=== PATIENT | male | born 1960 | race Caucasian/White ===

== ENCOUNTER 2019-12-31 19:57 | Inpatient (IN) | payer OTHER ==
[~2019-12-31] VITALS: Ht 180.3 cm; Wt 84.6 kg
[2019-12-31] MEDS ORDERED: VECURONIUM 10 MG ONE ×2 (20:06→20:58)
--- NOTE | 2019-12-31 20:25 | NUR ---
[facility] Blue called at 1946 after EMS alerted cardiac arrest via ambulance report
[2019-12-31] MEDS ORDERED: MIDAZOLAM HCL 50 MG in SODIUM CHLORIDE 0.9% 40 ML IV PRN (20:30)
--- NOTE | 2019-12-31 20:31 | NUR ---
Spoke with Dr. Hagen regarding patient at 2030. He asks that phlebotomist medical lab assistant be called in at this time. cardiac cath lab technologist called in by code phone at 2030. All phlebotomist medical lab assistant members in route per code phone (mogul operator) at [phone].
[2019-12-31 20:35] LABS: BASOPHILS # (AUTO) 0.06 x10^3/uL (0-0.1); BASOPHILS % (AUTO) 1 % (0-1); EOSINOPHILS # (AUTO) 0.13 x10^3/uL (0-0.4); EOSINOPHILS % (AUTO) 2 % (1-7); LYMPHOCYTES # (AUTO) 3.97 x10^3/uL (1-3.4); LYMPHOCYTES % (AUTO) 46 % (22-44); MD NO; MEAN CORPUSCULAR HEMOGLOBIN 30.7 pg (27.5-34.5); MEAN CORPUSCULAR HGB CONC 32.7 g/dL (33.2-36.2); MEAN CORPUSCULAR VOLUME 94.1 fL (81-97); MONOCYTES # (AUTO) 0.56 x10^3/uL (0.2-0.8); MONOCYTES % (AUTO) 6 % (2-9); NEUTROPHILS # (AUTO) 3.98 x10^3/uL (1.8-6.8); NEUTROPHILS % (AUTO) 46 % (42-75); PLATELET COUNT 134 x10^3/uL (130-400); RED BLOOD COUNT 4.54 x10^6/uL (4.38-5.82); RED CELL DISTRIBUTION WIDTH 13.7 % (9.4-14.8)
[2019-12-31] MEDS ORDERED: AMIODARONE 50 MG/ML, 3ML ONE ×3 (20:37→23:56)
[2019-12-31 20:52] LABS: ALBUMIN 3.3 g/dL (3.4-5.0); ANION GAP 18 mmol/L (5-15); CALCIUM 8.8 mg/dL (8.5-10.1); CHLORIDE 109 mmol/L (98-107)
[2019-12-31 20:54] LABS: ALANINE AMINOTRANSFERASE 367 U/L (12-78); ALKALINE PHOSPHATASE 71 U/L (45-117); BILIRUBIN,TOTAL 0.4 mg/dL (0.2-1.0); TOTAL PROTEIN 6.9 g/dL (6.4-8.2)
[2019-12-31 20:58] LABS: TROPONIN I 0.363 ng/mL (0.000-0.045)
[2019-12-31] MEDS ORDERED: EPINEPHRINE SYRINGE 0.1 MG/ML, 10ML ONE (20:58)
[2019-12-31] MEDS ORDERED: ASPIRIN 300 MG SUPP PR ONE (21:00)
[2019-12-31] MEDS ORDERED: AMIODARONE 50 MG/ML, 3ML IVPush ONE (21:00)
[2019-12-31] MEDS ORDERED: MIDAZOLAM 1 MG/ML, 2ML ONE (21:03)
[2019-12-31] MEDS ORDERED: FENTANYL PF 100 MCG/2ML ONE (21:03)
[2019-12-31] MEDS ORDERED: TICAGRELOR 90 MG TABLET ONE (21:03)
[2019-12-31] MEDS ORDERED: BIVALIRUDIN 250 MG ONE (21:03)
[2019-12-31] MEDS ORDERED: LIDOCAINE-MPF 1%, 5ML ONE (21:04)
[2019-12-31] MEDS ORDERED: VERAPAMIL 2.5 MG/ML, 2ML ONE (21:04)
--- NOTE | 2019-12-31 21:36 | NUR ---
ASSISTED WITH TRANSPORT TO QUANTITATIVE MANAGER.
[2019-12-31] MEDS ORDERED: SODIUM PHOSPHATE 20 MMOL in SODIUM CHLORIDE 0.9% 250 ML IVPB PRN (22:01)
[2019-12-31] MEDS ORDERED: SODIUM CHLORIDE 0.9% 1,000 ML IV SCH ×2 (22:01→22:18)
[2019-12-31] MEDS ORDERED: BIVALIRUDIN 250 MG in SODIUM CHLORIDE 0.9% 50 ML IV SCH (22:18)
[2019-12-31] MEDS ORDERED: ARTIFICIAL TEARS OINT 3.5 GM EACHEYE SCH (22:30)
[2019-12-31] MEDS ORDERED: CALCIUM CHLORIDE 13.6 MEQ in SODIUM CHLORIDE 0.9% 100 ML IVPB PRN (22:30)
[2019-12-31] MEDS ORDERED: ATORVASTATIN 80 MG TABLET PO SCH (22:30)
[2019-12-31] MEDS ORDERED: AMIODARONE 450 MG in DEXTROSE 5% 241 ML IV PRN (22:30)
[2019-12-31] MEDS ORDERED: LACTULOSE 20 GM/30 ML UDC NG PRN (22:30)
[2019-12-31] MEDS ORDERED: PHARMACY MAY ADJ FOR RENAL FX MC SCH (22:30)
[2019-12-31] MEDS ORDERED: EPINEPHRINE 5 MG in SODIUM CHLORIDE 0.9% 245 ML IV PRN (23:45)
[2019-12-31] MEDS ORDERED: EPINEPHRINE 1 MG/ML, 1ML ONE (23:56)
[2019-12-31] MEDS ORDERED: SODIUM CHLORIDE 0.9%, 250ML ONE (23:56)
[2019-12-31] MEDS ORDERED: DEXTROSE 5%, 250ML ONE (23:56)
[2019-12-31] MEDS ORDERED: CODE BLUE RESPONSE XX ONE (23:57)
[2020-01-01] MEDS ORDERED: EPINEPHRINE SYRINGE 0.1 MG/ML, 10ML ONE
[2020-01-01] MEDS ORDERED: ATROPINE SYRINGE 0.1 MG/ML, 10ML ONE
[2020-01-01] MEDS ORDERED: AMIODARONE 50 MG/ML, 3ML ONE
[2020-01-01] MEDS ORDERED: CALCIUM CHLORIDE 10%, 10ML SYR ONE
[2020-01-01] MEDS: BUSPIRONE 10 MG TABLET NG SCH ×3 (00:22→15:49)
[2020-01-01] MEDS: REGULAR INSULIN 100 UNITS in SODIUM CHLORIDE 0.9% 99 ML IV PRN ×2 (00:57→11:30)
[2020-01-01] MEDS: KSCALE TO 4.0 IV SCH ×6 (00:57→20:00)
[2020-01-01] MEDS: FAMOTIDINE 20 MG/2 ML IVPush SCH ×3 (00:58→20:59)
[2020-01-01] MEDS ORDERED: INSULIN REGULAR 100 UNITS/ML, 3ML VIAL IV ONE (01:00)
[2020-01-01] MEDS ORDERED: DEXTROSE 50%, 50ML SYRINGE IV PRN (01:00)
[2020-01-01] MEDS ORDERED: INSULIN INFUSION FOR ICU PROTOCOL XX PRN (01:00)
[2020-01-01] MEDS: FENTANYL PF 1,000 MCG in SODIUM CHLORIDE 0.9% 80 ML IV PRN ×2 (01:59→23:51)
[2020-01-01] MEDS: PROPOFOL 100 ML IV PRN ×2 (02:00→12:56)
[2020-01-01 04:00] VITALS: BP 94/65
[2020-01-01 04:40] LABS: MEAN CORPUSCULAR HEMOGLOBIN 30.8 pg (27.5-34.5); MEAN CORPUSCULAR HGB CONC 32.8 g/dL (33.2-36.2); MEAN CORPUSCULAR VOLUME 93.8 fL (81-97); MEAN PLATELET VOLUME 8.3 fL (7.4-10.4); PLATELET COUNT 324 x10^3/uL (130-400); RED BLOOD COUNT 4.91 x10^6/uL (4.38-5.82); RED CELL DISTRIBUTION WIDTH 13.6 % (9.4-14.8)
[2020-01-01 04:46] LABS: ANION GAP 13 mmol/L (5-15); CHLORIDE 115 mmol/L (98-107); CREATININE 1.99 mg/dL (0.7-1.3)
[2020-01-01] MEDS ORDERED: SODIUM BICARB 8.4%, 50ML SYRINGE IVPush STA (04:54)
[2020-01-01 04:57] LABS: MD YES
[2020-01-01] MEDS ORDERED: SODIUM BICARB 8.4%, 50ML SYRINGE ONE ×2 (04:57)
[2020-01-01 04:58] LABS: <PLATELET ESTIMATE> ADEQUATE; <PLT MORPHOLOGY> NORMAL PLT MORPH; <RBC MORPHOLOGY> NORMAL; BAND#(MANUAL) 2.61 x10^3/uL; BANDS%(MANUAL) 15 % (0-7); LYMPH#(MANUAL) 2.26 x10^3/uL (1-3.4); LYMPHS% (MANUAL) 13 % (22-44); METAMYELOCYTES# (MANUAL) 0.52 x10^3/uL (0-0); METAMYELOCYTES% (MANUAL) 3 % (0-1); MONOS#(MANUAL) 0.17 x10^3/uL (0.3-2.7); MONOS% (MANUAL) 1 % (2-9); REACTIVE LYMPHS # (MANUAL) 0.17 x10^3/uL (0-0); REACTIVE LYMPHS % (MANUAL) 1 % (0-0); SEG#(MANUAL) 11.66 x10^3/uL (1.8-6.8); SEGS% (MANUAL) 67 % (42-75)
[2020-01-01] MEDS: SODIUM BICARBONATE 8.4% 150 MEQ in DEXTROSE 5% 1,000 ML IV SCH ×3 (05:14→20:32)
[2020-01-01] MEDS ORDERED: POTASSIUM CHLORIDE PMX 100 ML IV ONE ×3 (06:00→21:00)
[2020-01-01] MEDS ORDERED: FILTER 0.22 MICRON IV PRN (06:30)
[2020-01-01] MEDS ORDERED: ASPIRIN 81 MG TABLET EC PO SCH (09:00)
[2020-01-01] MEDS: TICAGRELOR 90 MG TABLET PO SCH ×2 (09:26→20:59)
[2020-01-01] MEDS: ASPIRIN 81 MG TABLET CHEW NG SCH (09:26)
[2020-01-01] MEDS ORDERED: POTASSIUM CHLORIDE 30 MEQ in SODIUM CHLORIDE 0.9% 100 ML IV ONE (09:30)
[2020-01-01] MEDS ORDERED: AMPICILLIN/SULBACTAM 1,500 MG in SODIUM CHLORIDE 0.9% 50 ML IV SCH (10:00)
[2020-01-01] MEDS: NOREPINEPHRINE 8 MG in SODIUM CHLORIDE 0.9% 242 ML IV PRN ×2 (10:08→16:28)
[2020-01-01] MEDS ORDERED: SODIUM CHLORIDE 0.9%, 500ML IVBOLUS ONE (12:00)
[2020-01-01] MEDS ORDERED: MAGNESIUM SULFATE 1 GM in DEXTROSE 5% 100 ML IV ONE (13:00)
[2020-01-01] MEDS ORDERED: DOBUTAMINE/D5W PMX 250 ML IV PRN (13:00)
[2020-01-01] MEDS ORDERED: POTASSIUM CHLORIDE 40 MEQ in SODIUM CHLORIDE 0.9% 100 ML IV ONE (13:00)
[2020-01-01] MEDS ORDERED: VECURONIUM 10 MG IVPush ONE ×2 (13:00→16:30)
[2020-01-01] MEDS: HEPARIN 25,000 UNITS/250ML PMX 250 ML IV PRN (14:04)
[2020-01-01] MEDS: ARTIFICIAL TEARS OINT 3.5 GM EACHEYE SCH ×2 (14:19→22:18)
[2020-01-01] MEDS: AMPICILLIN/SULBACTAM 1,500 MG in SODIUM CHLORIDE 0.9% 50 ML IV SCH ×2 (17:12→23:37)
[2020-01-01] MEDS: ATORVASTATIN 80 MG TABLET NG SCH (20:59)
[2020-01-01] MEDS: HEPARIN 5,000 UNITS/ML, 1ML IV PRN (21:00)
[2020-01-02] MEDS: BUSPIRONE 10 MG TABLET NG SCH ×3 (00:35→17:00)
[2020-01-02] MEDS ORDERED: MIDAZOLAM HCL 50 MG in SODIUM CHLORIDE 0.9% 40 ML IV PRN (01:00)
[2020-01-02] MEDS ORDERED: POTASSIUM CHLORIDE PMX 100 ML IV ONE ×2 (01:00→09:30)
[2020-01-02] MEDS ORDERED: VECURONIUM 10 MG ONE (01:16)
[2020-01-02] MEDS: MAGNESIUM SULFATE/D5W 100 ML IVPB PRN ×2 (01:23→05:11)
[2020-01-02] MEDS ORDERED: VECURONIUM 10 MG IVPush ONE (01:30)
[2020-01-02] MEDS: NOREPINEPHRINE 8 MG in SODIUM CHLORIDE 0.9% 242 ML IV PRN (02:43)
[2020-01-02 04:00] VITALS: BP 159/80
[2020-01-02] MEDS: KSCALE TO 4.0 IV SCH ×6 (04:00→20:00)
[2020-01-02] MEDS: SODIUM BICARBONATE 8.4% 150 MEQ in DEXTROSE 5% 1,000 ML IV SCH (04:01)
[2020-01-02 04:38] LABS: MEAN CORPUSCULAR HEMOGLOBIN 30.9 pg (27.5-34.5); MEAN CORPUSCULAR HGB CONC 33.1 g/dL (33.2-36.2); MEAN CORPUSCULAR VOLUME 93.2 fL (81-97); MEAN PLATELET VOLUME 8.5 fL (7.4-10.4); PLATELET COUNT 248 x10^3/uL (130-400); RED BLOOD COUNT 5.11 x10^6/uL (4.38-5.82); RED CELL DISTRIBUTION WIDTH 13.3 % (9.4-14.8)
[2020-01-02] MEDS: AMPICILLIN/SULBACTAM 1,500 MG in SODIUM CHLORIDE 0.9% 50 ML IV SCH ×4 (05:02→23:44)
[2020-01-02 05:40] LABS: MD YES
[2020-01-02 05:41] LABS: BAND#(MANUAL) 1.91 x10^3/uL; BANDS%(MANUAL) 13 % (0-7); LYMPH#(MANUAL) 1.62 x10^3/uL (1-3.4); LYMPHS% (MANUAL) 11 % (22-44); MONOS#(MANUAL) 0.59 x10^3/uL (0.3-2.7); MONOS% (MANUAL) 4 % (2-9); SEG#(MANUAL) 10.58 x10^3/uL (1.8-6.8); SEGS% (MANUAL) 72 % (42-75)
[2020-01-02 05:42] LABS: <PLATELET ESTIMATE> ADEQUATE; <PLT MORPHOLOGY> NORMAL PLT MORPH; <RBC MORPHOLOGY> NORMAL
[2020-01-02] MEDS: ARTIFICIAL TEARS OINT 3.5 GM EACHEYE SCH ×3 (06:30→22:09)
[2020-01-02 06:31] LABS: ANION GAP 9 mmol/L (5-15); CALCIUM 8.2 mg/dL (8.5-10.1); CHLORIDE 108 mmol/L (98-107)
[2020-01-02] MEDS ORDERED: SODIUM CHLORIDE 0.45% 1,000 ML IV SCH (07:30)
[2020-01-02] MEDS: SODIUM CHLORIDE 0.45% 1,000 ML IV SCH ×2 (07:48→17:23)
[2020-01-02 08:18] LABS: FIO2 30 %
[2020-01-02] MEDS: TICAGRELOR 90 MG TABLET PO SCH ×2 (08:19→22:08)
[2020-01-02] MEDS: ASPIRIN 81 MG TABLET CHEW NG SCH (08:19)
[2020-01-02] MEDS ORDERED: MIDAZOLAM 1 MG/ML, 2ML ONE (12:19)
[2020-01-02] MEDS: PROPOFOL 100 ML IV PRN ×3 (12:26→23:46)
[2020-01-02] MEDS ORDERED: MIDAZOLAM 1 MG/ML, 2ML IVPush ONE (12:30)
[2020-01-02] MEDS: HEPARIN 25,000 UNITS/250ML PMX 250 ML IV PRN (14:55)
[2020-01-02 16:43] LABS: ALANINE AMINOTRANSFERASE 363 U/L (12-78); ALBUMIN 2.5 g/dL (3.4-5.0); ANION GAP 6 mmol/L (5-15); CALCIUM 7.8 mg/dL (8.5-10.1); CHLORIDE 106 mmol/L (98-107); CREATININE 1.87 mg/dL (0.7-1.3)
[2020-01-02 16:45] LABS: ALKALINE PHOSPHATASE 59 U/L (45-117); BILIRUBIN,TOTAL 0.8 mg/dL (0.2-1.0); TOTAL PROTEIN 5.8 g/dL (6.4-8.2)
[2020-01-02] MEDS ORDERED: LEVETIRACETAM 1,000 MG in SODIUM CHLORIDE 0.9% 100 ML IV ONE (18:30)
[2020-01-02] MEDS: ATORVASTATIN 80 MG TABLET NG SCH (22:08)
[2020-01-02] MEDS: FAMOTIDINE 20 MG/2 ML IVPush SCH (22:08)
[2020-01-02] MEDS ORDERED: hydrALAzine 20 MG/ML, 1ML ONE (22:29)
[2020-01-02] MEDS: hydrALAzine 20 MG/ML, 1ML IV PRN (22:31)
[2020-01-03] MEDS: PROPOFOL 100 ML IV PRN ×5 (03:41→22:43)
[2020-01-03] MEDS: SODIUM CHLORIDE 0.45% 1,000 ML IV SCH ×2 (03:42→16:57)
[2020-01-03 05:12] LABS: MEAN CORPUSCULAR HGB CONC 33.8 g/dL (33.2-36.2); MEAN CORPUSCULAR VOLUME 91.7 fL (81-97); MEAN PLATELET VOLUME 8.7 fL (7.4-10.4); PLATELET COUNT 190 x10^3/uL (130-400); RED BLOOD COUNT 4.51 x10^6/uL (4.38-5.82); RED CELL DISTRIBUTION WIDTH 13.9 % (9.4-14.8)
[2020-01-03] MEDS: AMPICILLIN/SULBACTAM 1,500 MG in SODIUM CHLORIDE 0.9% 50 ML IV SCH ×4 (05:32→23:01)
[2020-01-03] MEDS: hydrALAzine 20 MG/ML, 1ML IV PRN ×2 (05:36→14:52)
[2020-01-03 05:55] LABS: MD YES
[2020-01-03 05:56] LABS: BAND#(MANUAL) 3.68 x10^3/uL; BANDS%(MANUAL) 25 % (0-7)
[2020-01-03 05:57] LABS: LYMPH#(MANUAL) 1.32 x10^3/uL (1-3.4); LYMPHS% (MANUAL) 9 % (22-44); MONOS#(MANUAL) 0.15 x10^3/uL (0.3-2.7); MONOS% (MANUAL) 1 % (2-9); SEG#(MANUAL) 9.56 x10^3/uL (1.8-6.8); SEGS% (MANUAL) 65 % (42-75)
[2020-01-03] MEDS: HEPARIN 5,000 UNITS/ML, 1ML IV PRN ×3 (05:57→20:39)
[2020-01-03 05:58] LABS: <PLATELET ESTIMATE> ADEQUATE; <PLT MORPHOLOGY> NORMAL PLT MORPH; <RBC MORPHOLOGY> NORMAL; PMNS WITH VACUOLES 1+
[2020-01-03] MEDS: ARTIFICIAL TEARS OINT 3.5 GM EACHEYE SCH ×3 (05:59→22:30)
[2020-01-03 06:05] LABS: ALBUMIN 2.5 g/dL (3.4-5.0); ANION GAP 6 mmol/L (5-15); CALCIUM 7.7 mg/dL (8.5-10.1); CHLORIDE 107 mmol/L (98-107)
[2020-01-03 06:08] LABS: CREATININE 1.99 mg/dL (0.7-1.3)
[2020-01-03 06:09] LABS: ALANINE AMINOTRANSFERASE 315 U/L (12-78); ALKALINE PHOSPHATASE 59 U/L (45-117); BILIRUBIN,TOTAL 1.1 mg/dL (0.2-1.0); TOTAL PROTEIN 5.7 g/dL (6.4-8.2)
[2020-01-03] MEDS: LEVETIRACETAM 500 MG in SODIUM CHLORIDE 0.9% 100 ML IV SCH ×2 (06:30→18:04)
[2020-01-03] MEDS: ASPIRIN 81 MG TABLET CHEW NG SCH (08:52)
[2020-01-03] MEDS: TICAGRELOR 90 MG TABLET PO SCH ×2 (08:52→20:39)
[2020-01-03 16:42] LABS: MICROSCOPIC AUTO
[2020-01-03 16:44] LABS: CULTURE INDICATED? NO
[2020-01-03 16:50] LABS: CREATININE,URINE RANDOM 50.6 mg/dL
[2020-01-03] MEDS: HEPARIN 25,000 UNITS/250ML PMX 250 ML IV PRN (19:17)
[2020-01-03] MEDS: ATORVASTATIN 80 MG TABLET NG SCH (20:39)
[2020-01-03] MEDS: FAMOTIDINE 20 MG/2 ML IVPush SCH (20:39)
[2020-01-04] MEDS: SODIUM CHLORIDE 0.45% 1,000 ML IV SCH ×2 (02:15→16:18)
[2020-01-04] MEDS: PROPOFOL 100 ML IV PRN (03:27)
[2020-01-04 03:43] LABS: MEAN CORPUSCULAR HEMOGLOBIN 30.3 pg (27.5-34.5); MEAN CORPUSCULAR HGB CONC 33.3 g/dL (33.2-36.2); MEAN CORPUSCULAR VOLUME 91.1 fL (81-97); MEAN PLATELET VOLUME 8.6 fL (7.4-10.4); PLATELET COUNT 182 x10^3/uL (130-400); RED BLOOD COUNT 3.99 x10^6/uL (4.38-5.82); RED CELL DISTRIBUTION WIDTH 14.6 % (9.4-14.8)
[2020-01-04 04:33] LABS: MD YES
[2020-01-04 04:37] LABS: <RBC MORPHOLOGY> NORMAL; BAND#(MANUAL) 1.83 x10^3/uL; BANDS%(MANUAL) 14 % (0-7); EOS#(MANUAL) 0.13 x10^3/uL (0.0-0.4); EOS% (MANUAL) 1 % (1-7); LYMPH#(MANUAL) 0.66 x10^3/uL (1-3.4); LYMPHS% (MANUAL) 5 % (22-44); MONOS#(MANUAL) 0.13 x10^3/uL (0.3-2.7); MONOS% (MANUAL) 1 % (2-9); SEGS% (MANUAL) 79 % (42-75)
[2020-01-04 04:38] LABS: <PLATELET ESTIMATE> ADEQUATE; <PLT MORPHOLOGY> NORMAL PLT MORPH
[2020-01-04] MEDS: AMPICILLIN/SULBACTAM 1,500 MG in SODIUM CHLORIDE 0.9% 50 ML IV SCH ×4 (04:44→22:27)
[2020-01-04] MEDS: ARTIFICIAL TEARS OINT 3.5 GM EACHEYE SCH ×3 (06:11→22:28)
[2020-01-04] MEDS: LEVETIRACETAM 500 MG in SODIUM CHLORIDE 0.9% 100 ML IV SCH ×2 (06:11→18:30)
[2020-01-04 06:50] LABS: ALANINE AMINOTRANSFERASE 213 U/L (12-78); ALBUMIN 2.3 g/dL (3.4-5.0); ANION GAP 5 mmol/L (5-15); CALCIUM 7.7 mg/dL (8.5-10.1); CHLORIDE 112 mmol/L (98-107); CREATININE 1.84 mg/dL (0.7-1.3)
[2020-01-04 06:52] LABS: ALKALINE PHOSPHATASE 57 U/L (45-117); BILIRUBIN,TOTAL 0.8 mg/dL (0.2-1.0); TOTAL PROTEIN 5.6 g/dL (6.4-8.2)
[2020-01-04] MEDS: TICAGRELOR 90 MG TABLET PO SCH ×2 (10:20→20:32)
[2020-01-04] MEDS: ASPIRIN 81 MG TABLET CHEW NG SCH (10:20)
[2020-01-04] MEDS: HEPARIN 25,000 UNITS/250ML PMX 250 ML IV PRN (15:55)
[2020-01-04] MEDS: FAMOTIDINE 20 MG/2 ML IVPush SCH (20:32)
[2020-01-04] MEDS: ATORVASTATIN 80 MG TABLET NG SCH (20:32)
[2020-01-05] MEDS ORDERED: FENTANYL PF 100 MCG/2ML ONE (01:40)
[2020-01-05] MEDS ORDERED: MIDAZOLAM 1 MG/ML, 2ML ONE (01:57)
[2020-01-05] MEDS ORDERED: MIDAZOLAM 1 MG/ML, 2ML IVPush ONE (02:00)
[2020-01-05 04:40] LABS: MEAN CORPUSCULAR HEMOGLOBIN 30.6 pg (27.5-34.5); MEAN CORPUSCULAR HGB CONC 33.1 g/dL (33.2-36.2); MEAN CORPUSCULAR VOLUME 92.4 fL (81-97); MEAN PLATELET VOLUME 8.3 fL (7.4-10.4); PLATELET COUNT 156 x10^3/uL (130-400); RED BLOOD COUNT 3.59 x10^6/uL (4.38-5.82); RED CELL DISTRIBUTION WIDTH 14.1 % (9.4-14.8)
[2020-01-05 04:43] LABS: MD YES
[2020-01-05 04:54] LABS: <PLATELET ESTIMATE> ADEQUATE; <PLT MORPHOLOGY> NORMAL PLT MORPH; <RBC MORPHOLOGY> NORMAL; BAND#(MANUAL) 0.35 x10^3/uL; BANDS%(MANUAL) 3 % (0-7); LYMPH#(MANUAL) 0.58 x10^3/uL (1-3.4); LYMPHS% (MANUAL) 5 % (22-44); MONOS#(MANUAL) 1.16 x10^3/uL (0.3-2.7); MONOS% (MANUAL) 10 % (2-9); SEG#(MANUAL) 9.51 x10^3/uL (1.8-6.8); SEGS% (MANUAL) 82 % (42-75)
[2020-01-05] MEDS: AMPICILLIN/SULBACTAM 1,500 MG in SODIUM CHLORIDE 0.9% 50 ML IV SCH ×4 (05:23→22:35)
[2020-01-05] MEDS: LEVETIRACETAM 500 MG in SODIUM CHLORIDE 0.9% 100 ML IV SCH (06:38)
[2020-01-05 07:18] LABS: ANION GAP 7 mmol/L (5-15); CHLORIDE 112 mmol/L (98-107); CREATININE 1.66 mg/dL (0.7-1.3)
[2020-01-05] MEDS: TICAGRELOR 90 MG TABLET PO SCH ×2 (09:07→21:46)
[2020-01-05] MEDS: ASPIRIN 81 MG TABLET CHEW NG SCH (09:07)
[2020-01-05] MEDS: HEPARIN 5,000 UNITS/ML, 1ML IV PRN ×2 (09:25→22:33)
[2020-01-05] MEDS ORDERED: [UNRECOGNIZED DRUG - OTHER] IV ONE (10:00)
[2020-01-05] MEDS ORDERED: LEVETIRACETAM 500 MG in SODIUM CHLORIDE 0.9% 100 ML IV ONE (10:00)
[2020-01-05] MEDS ORDERED: SODIUM CHLORIDE 0.9% IV ONE (10:00)
[2020-01-05] MEDS: SODIUM CHLORIDE 0.9% IV SCH (10:15)
[2020-01-05] MEDS: [UNRECOGNIZED DRUG - OTHER] IV SCH (10:15)
[2020-01-05] MEDS: SODIUM CHLORIDE 0.45% 1,000 ML IV SCH (10:20)
[2020-01-05] MEDS: HEPARIN 25,000 UNITS/250ML PMX 250 ML IV PRN (12:02)
[2020-01-05 13:40] LABS: HIT RESULT NEGATIVE (NEGATIVE)
[2020-01-05] MEDS: LEVETIRACETAM 1,000 MG in SODIUM CHLORIDE 0.9% 100 ML IV SCH (17:55)
[2020-01-05] MEDS: FAMOTIDINE 20 MG/2 ML IVPush SCH (21:46)
[2020-01-05] MEDS: ATORVASTATIN 80 MG TABLET NG SCH (21:46)
[2020-01-06] MEDS: HEPARIN 25,000 UNITS/250ML PMX 250 ML IV PRN (03:16)
[2020-01-06 04:42] LABS: MEAN CORPUSCULAR HGB CONC 33.7 g/dL (33.2-36.2); MEAN CORPUSCULAR VOLUME 91.9 fL (81-97); MEAN PLATELET VOLUME 8.3 fL (7.4-10.4); PLATELET COUNT 147 x10^3/uL (130-400); RED BLOOD COUNT 3.26 x10^6/uL (4.38-5.82)
[2020-01-06 04:55] LABS: ANION GAP 6 mmol/L (5-15); CALCIUM 7.7 mg/dL (8.5-10.1); CHLORIDE 112 mmol/L (98-107)
[2020-01-06 04:58] LABS: CREATININE 1.51 mg/dL (0.7-1.3); TRIGLYCERIDES 96 mg/dL (50-200)
[2020-01-06] MEDS: AMPICILLIN/SULBACTAM 1,500 MG in SODIUM CHLORIDE 0.9% 50 ML IV SCH ×4 (05:02→20:41)
[2020-01-06 05:59] LABS: BASOPHILS # (AUTO) 0.02 x10^3/uL (0-0.1); BASOPHILS % (AUTO) 0 % (0-1); EOSINOPHILS # (AUTO) 0.11 x10^3/uL (0-0.4); EOSINOPHILS % (AUTO) 2 % (1-7); LYMPHOCYTES # (AUTO) 0.85 x10^3/uL (1-3.4); LYMPHOCYTES % (AUTO) 12 % (22-44); MD SCAN; MONOCYTES # (AUTO) 0.69 x10^3/uL (0.2-0.8); MONOCYTES % (AUTO) 10 % (2-9); NEUTROPHILS # (AUTO) 5.26 x10^3/uL (1.8-6.8); NEUTROPHILS % (AUTO) 76 % (42-75)
[2020-01-06] MEDS: LEVETIRACETAM 1,000 MG in SODIUM CHLORIDE 0.9% 100 ML IV SCH ×2 (06:14→18:30)
[2020-01-06] MEDS: SODIUM CHLORIDE 0.45% 1,000 ML IV SCH (06:14)
[2020-01-06] MEDS: SODIUM CHLORIDE 0.9% IV SCH (08:14)
[2020-01-06] MEDS: [UNRECOGNIZED DRUG - OTHER] IV SCH (08:14)
[2020-01-06] MEDS: TICAGRELOR 90 MG TABLET PO SCH ×2 (10:14→20:41)
[2020-01-06] MEDS: ASPIRIN 81 MG TABLET CHEW NG SCH (10:15)
[2020-01-06] MEDS ORDERED: SCOPOLAMINE 1MG PATCH TD PRN (17:00)
[2020-01-06] MEDS ORDERED: ONDANSETRON 2MG/ML, 2ML IVPush PRN (17:00)
[2020-01-06] MEDS ORDERED: LORazepam 2 MG/ML, 1ML IV ONE (18:00)
[2020-01-06] MEDS ORDERED: MORPHINE SULFATE 4 MG/ML, 1ML IV ONE (18:00)
[2020-01-06] MEDS: FAMOTIDINE 20 MG/2 ML IVPush SCH (20:41)
[2020-01-06] MEDS: ATORVASTATIN 80 MG TABLET NG SCH (20:41)
[2020-01-07] MEDS: morphine SULFATE 10 MG/ML, 1ML IVPush PRN ×4 (05:54→23:15)
[2020-01-08] MEDS: morphine SULFATE 10 MG/ML, 1ML IVPush PRN ×4 (02:16→10:46)
[2020-01-08] MEDS ORDERED: MORPHINE 30MG/30ML PCA.SYR IV SCH (11:30)
[2020-01-08] MEDS ORDERED: morphine SULFATE 100 MG in DEXTROSE 5% 90 ML IV PRN (11:30)
[2020-01-08] MEDS: MORPHINE 30MG/30ML PCA.SYR IV SCH (11:49)
[2020-01-08] MEDS: LORazepam 2 MG/ML, 1ML IVPush PRN ×3 (12:45→21:43)
[2020-01-09] MEDS: MORPHINE 30MG/30ML PCA.SYR IV SCH ×4 (00:30→20:53)
[2020-01-09] MEDS: LORazepam 2 MG/ML, 1ML IVPush PRN (09:40)
[2020-01-09] MEDS: LORazepam 2 MG/ML, 1ML IVPush SCH ×2 (14:24→19:33)
[2020-01-09] MEDS: ATROPINE OPHTH SOLN 1%, 5ML BC PRN ×2 (22:11→23:59)
[2020-01-10] MEDS: LORazepam 2 MG/ML, 1ML IVPush SCH ×2 (01:44→08:02)
[2020-01-10] MEDS: ATROPINE OPHTH SOLN 1%, 5ML BC PRN ×3 (01:46→08:06)
[2020-01-10] MEDS: MORPHINE 30MG/30ML PCA.SYR IV SCH ×3 (02:10→07:11)
[2020-01-10] MEDS: morphine SULFATE 10 MG/ML, 1ML IVPush PRN (05:08)
== END 2020-01-10 12:25 | disposition expired | DRG 246 ==
LOC: ED 20:50 → EDIP 22:30 → CCU 22:47 → 4NW 01-07 01:46 → 3N 01-07 15:20
PROVIDERS: ADMIT Family Medicine; ATTEND Internal Medicine
PROC: 027034Z Dilation of Coronary Artery, One Artery with Drug-eluting Intraluminal Device, Percutaneous Approach (ICD-10-PCS; principal; 2019-12-31)
PROC: 0BH17EZ Insertion of Endotracheal Airway into Trachea, Via Natural or Artificial Opening (ICD-10-PCS; 2019-12-31)
PROC: 4A023N7 Measurement of Cardiac Sampling and Pressure, Left Heart, Percutaneous Approach (ICD-10-PCS; 2019-12-31)
PROC: B211YZZ Fluoroscopy of Multiple Coronary Arteries using Other Contrast (ICD-10-PCS; 2019-12-31)
PROC: B215YZZ Fluoroscopy of Left Heart using Other Contrast (ICD-10-PCS; 2019-12-31)
PROC: 5A1945Z Respiratory Ventilation, 24-96 Consecutive Hours (ICD-10-PCS; 2019-12-31)
PROC: 03HY32Z Insertion of Monitoring Device into Upper Artery, Percutaneous Approach (ICD-10-PCS; 2019-12-31)
PROC: 02HV33Z Insertion of Infusion Device into Superior Vena Cava, Percutaneous Approach (ICD-10-PCS; 2019-12-31)
PROC: B548ZZA Ultrasonography of Superior Vena Cava, Guidance (ICD-10-PCS; 2019-12-31)
PROC: 5A12012 Performance of Cardiac Output, Single, Manual (ICD-10-PCS; 2020-01-05)
PROC: 5A2204Z Restoration of Cardiac Rhythm, Single (ICD-10-PCS; 2020-01-05)
PROC: 5A1935Z Respiratory Ventilation, Less than 24 Consecutive Hours (ICD-10-PCS; 2020-01-06)
DX: I21.19 ST elevation (STEMI) myocardial infarction involving other coronary artery of inferior wall (principal); I63.40 Cerebral infarction due to embolism of unspecified cerebral artery; J96.01 Acute respiratory failure with hypoxia; N17.0 Acute kidney failure with tubular necrosis; E87.2 Acidosis; G93.1 Anoxic brain damage, not elsewhere classified; I42.9 Cardiomyopathy, unspecified; I47.2 Ventricular tachycardia; R57.9 Shock, unspecified; Z99.11 Dependence on respirator [ventilator] status; D69.6 Thrombocytopenia, unspecified; D72.825 Bandemia; E11.9 Type 2 diabetes mellitus without complications; G40.901 Epilepsy, unspecified, not intractable, with status epilepticus; I25.10 Atherosclerotic heart disease of native coronary artery without angina pectoris; I46.2 Cardiac arrest due to underlying cardiac condition; I49.01 Ventricular fibrillation; Z66 Do not resuscitate; Z51.5 Encounter for palliative care; I25.2 Old myocardial infarction; Z87.891 Personal history of nicotine dependence; Z79.899 Other long term (current) drug therapy
CPT/HCPCS: 36415; 36600; 84145; 92960; 93458; 96374; 99291; 99292; J3490; 70551; 71045; 80047; 80048; 80053; 80074; 81001; 82330; 82570; 82803; 82962; 83036; 83605; 83735; 84100; 84132; 84300; 84478; 84484; 85025; 85347; 85520; 86022; 86850; 86900; 87040; 87070; 87081; 87205; 93005; 93306; 94002; 94003; 95715; 95819; C1894; G0378; J0171; J0461; J0583; J1644; J1815; J1953; J2250; J2270; J2515; J2704; J3010; J3475; J3480; J7060; J7070; C1725; C1874; C1887; J0282; J0295; J0360; J2060; J7030; J7040; J7050; Q9967